=== PATIENT | female | born 1985 | race Two or more races ===

== ENCOUNTER 2020-10-16 12:24 | Emergency (ER) | payer OTHER ==
[~2020-10-16] VITALS: Ht 162.6 cm; Wt 64.1 kg
[2020-10-16 13:00] LABS: HCG UR SG 1.029 (1.003-1.030)
[2020-10-16] MEDS ORDERED: SODIUM CHLORIDE 0.9% 1,000ML IVBOLUS ONE (13:00)
[2020-10-16] MEDS ORDERED: ONDANSETRON 2MG/ML, 2ML IVPush ONE (13:00)
[2020-10-16 13:04] LABS: MICROSCOPIC INDICATED
[2020-10-16] MEDS ORDERED: ONDANSETRON 2MG/ML, 2ML ONE (13:16)
[2020-10-16] MEDS ORDERED: MORPHINE SULFATE 4 MG/ML, 1ML ONE ×2 (13:17→13:49)
[2020-10-16] MEDS: MORPHINE SULFATE 4 MG/ML, 1ML IVPush PRN ×2 (13:22→13:50)
[2020-10-16 13:26] LABS: BASOPHILS % (AUTO) 0 % (0-1); EOSINOPHILS % (AUTO) 0 % (1-7); LYMPHOCYTES % (AUTO) 10 % (22-44); MEAN CORPUSCULAR HEMOGLOBIN 30.9 pg (27.0-34.8); MEAN PLATELET VOLUME 8.5 fL (7.4-10.4); MONOCYTES % (AUTO) 6 % (2-9); NEUTROPHILS % (AUTO) 84 % (42-75); PLATELET COUNT 249 x10^3/uL (130-400); RED BLOOD COUNT 4.08 x10^6/uL (3.82-5.3); RED CELL DISTRIBUTION WIDTH 13.3 % (9.6-15.2)
--- NOTE | 2020-10-16 13:29 | NUR ---
PIV STARTED, LABS DRAWN, PT MEDICATED PER EMAR. VSS, NADN.
[2020-10-16 13:30] LABS: MD NO
--- NOTE | 2020-10-16 13:32 | NUR ---
THIS IS A 35 YO F W/ C/O SUDDEN ONSET RUQ/FLANK/BACK PAIN BEGINING AT 1000 AM THIS MORNING. PT REPORTS NO HX OF SAME. NO MEDICAL HX. PT RESTING ON GURNEY W/ CALL LIGHT IN REACH AND FAMILY AT BEDSIDE. RESP EVEN AND UNLABORED, MARIN.
[2020-10-16 13:41] LABS: ALANINE AMINOTRANSFERASE 19 U/L (12-78); ALBUMIN 3.8 g/dL (3.4-5.0); ANION GAP 7 mmol/L (5-15); CALCIUM 8.3 mg/dL (8.5-10.1); CHLORIDE 107 mmol/L (98-107); CREATININE 0.58 mg/dL (0.55-1.02)
[2020-10-16 13:45] LABS: ALKALINE PHOSPHATASE 51 U/L (45-117); BILIRUBIN,TOTAL 0.7 mg/dL (0.2-1.0); TOTAL PROTEIN 7.3 g/dL (6.4-8.2)
--- NOTE | 2020-10-16 13:55 | NUR ---
PT HAS C/O 10/10 PAIN AGAIN, MEDICATED PER EMAR.
--- NOTE | 2020-10-16 14:37 | NUR ---
PT TO CT.
[2020-10-16] MEDS ORDERED: OMNIPAQUE 350 MG/ML, 100ML BOTTLE ONE (14:47)
--- NOTE | 2020-10-16 15:09 | NUR ---
PT REPORTS RELIEF IN PAIN AFTER MEDS. ALL TESTS RESULTED, PT IS UP FOR RECHECK AT THIS TIME. ADOLPH, LOYDA.
[2020-10-16 15:10] VITALS: BP 98/59
[2020-10-16] MEDS ORDERED: KETOROLAC 30 MG/1 ML IVPush ONE (15:30)
[2020-10-16] MEDS ORDERED: KETOROLAC 30 MG/1 ML ONE (15:34)
--- NOTE | 2020-10-16 15:50 | NUR ---
Patient given discharge instructions and they have confirmed that they understand the instructions. Patient ambulatory with steady gait. LOYDA.
== END 2020-10-16 15:51 | disposition home or self-care (01) ==
LOC: ED 13:01
DX: N20.1 Calculus of ureter (principal)
CPT/HCPCS: 36415; 74177; 80053; 81001; 81025; 83690; 84703; 85025; 87086; 96361; 96374; 96375; 99285; J1885; J2270; J2405; J7030; Q9967